=== PATIENT | female | born 1980 | race Caucasian/White ===

== ENCOUNTER → 2019-05-17 10:43 | Outpatient (CLI) | payer BC, SELFPAY ==
--- NOTE | ~2019-05-17 | US_ITS ---
EXAMINATION: US pelvic complete w TV DATE: 05/17/2019 12:20 INDICATION: Pelvic pain, ovarian cyst TECHNIQUE: Multiple transabdominal and endovaginal sonographic images of the pelvis were obtained. COMPARISON: None. FINDINGS: The uterus measures 7.1 x 2.9 x 4.0 cm. There are hypoechoic areas in the body of the uteru s which measure up to 1.1 x 0.9 cm and have the appearance of intramural fibroids. The endometrial co mplex measures 4 mm. The right ovary measures 2.7 x 2.0 x 2.3 cm. The left ovary measures 2.6 x 1.5 x 2.3 cm. There is normal vascular flow in the ovaries. There is a small amount of likely physiologic free fluid in the pelvis. IMPRESSION: 1. No sonographic correlate for the patient's symptoms. 2. Small uterine fibroids. Reviewed, dictated and finalized at location A.
== END ==
PROVIDERS: PCP Emergency Medicine; Visit Provider Emergency Medicine
DX: N83.209 Unspecified ovarian cyst, unspecified side (principal); D25.9 Leiomyoma of uterus, unspecified
CPT/HCPCS: 76830; 76856